=== PATIENT | female | born 1980 | race African-American/Black ===

== ENCOUNTER → 2018-08-22 | Outpatient (CLI) | payer OTHER ==
[2018-08-22 17:25] LABS: HEMOGLOBIN A1c 7.9 %
[2018-08-22 17:29] LABS: ALBUMIN 3.6 GM/DL (3.2-5.2); ALT/SGPT 31 U/L (12-78); BILIRUBIN,DIRECT < 0.1 MG/DL (0.0-0.2); BILIRUBIN,TOTAL 0.3 MG/DL (0.2-1.0); BLOOD UREA NITROGEN 11 MG/DL (7-18); CALCIUM LEVEL 9.1 MG/DL (8.5-10.1); CARBON DIOXIDE LEVEL 27 MEQ/L (21-32); CHLORIDE LEVEL 109 MEQ/L (98-107); CREATININE FOR GFR 0.98 MG/DL (0.55-1.30); GLOMERULAR FILTRATION RATE > 60.0 (>60); GLUCOSE, FASTING 102 MG/DL (70-100); PHOSPHORUS LEVEL 3.1 MG/DL (2.5-4.9); POTASSIUM SERUM 4.5 MEQ/L (3.5-5.1); SODIUM LEVEL 142 MEQ/L (136-145); TOTAL PROTEIN 7.3 GM/DL (6.4-8.2)
== END ==
LOC: M WUC 15:19
PROVIDERS: ATTEND Physician Assistant
DX: I10 Essential (primary) hypertension (principal)

== ENCOUNTER → 2018-09-01 | Outpatient (REF) | payer OTHER ==
[2018-09-01 17:42] LABS: FOLLICLE STIMULATING HORMONE 24.9 mIU/mL; LUTEINIZING HORMONE 24.7 mIU/mL
== END ==
LOC: M SFHCWAGY 15:56
PROVIDERS: ATTEND Nurse Practitioner Women's Health
DX: N91.5 Oligomenorrhea, unspecified (principal); R23.2 Flushing

== ENCOUNTER → 2018-09-29 | Outpatient (CLI) | payer OTHER ==
--- NOTE | 2018-09-29 10:15 | REPMRS ---
Patient History The patient states she had a clinical breast exam in 11/2017. Patient is nulliparous. Family history of breast cancer under age 50 in maternal aunt, breast cancer under age 50 and ovarian cancer under age 50 in maternal aunt, colorectal cancer at age 50 or over in maternal uncle. 3D TOMOSYNTHESIS WAS PERFORMED. Digital Woman Screen Mammo: September 29, 2018 - Exam #: [id number] Bilateral MLO, CC, and XCCL view(s) were taken. Technologist: Dayami Henry, Technologist No prior studies available for comparison. FINDINGS: The breast tissue is heterogeneously dense. This may lower the sensitivity of mammography. There is no evidence of cancer on this mammogram. Assessment: BI-RADS/ACR category 2 mammogram. Benign Findings. Recommendation Routine screening mammogram of both breasts in 1 year (for women over age 40). This mammogram was interpreted with the aid of an FDA-approved computer-aided dectection system. THE LIFETIME RISK OF BREAST CANCER IS 23.0%, THEREFORE SUPPLEMENTAL SCREENING MRI OF THE BREASTS IS RECOMMENDED IN 6 MONTHS. Electronically Signed By: Praveen Manrique MD 09/29/18 0037
== END ==
LOC: M WHC 08:28
PROVIDERS: ATTEND Nurse Practitioner Women's Health
DX: Z12.31 Encounter for screening mammogram for malignant neoplasm of breast (principal); Z80.3 Family history of malignant neoplasm of breast

== ENCOUNTER → 2018-11-25 | Outpatient (CLI) | payer OTHER ==
--- NOTE | 2018-11-25 12:36 | REP ---
Clinical: Trauma. Technique: AP, lateral views right tibia/fibula. Findings: The osseous structures and joint spaces are intact and normal. There is no evidence for acute fracture or dislocation. Surrounding soft tissues are unremarkable. No subcutaneous emphysema or radiodense foreign body. Impression: No acute fracture or dislocation. Electronically Signed by Iron Paige MD 11/25/2018 12:28 P
== END ==
LOC: M WUC 12:14
PROVIDERS: ATTEND Physician Assistant
DX: S80.11XA Contusion of right lower leg, initial encounter (principal); X58.XXXA Exposure to other specified factors, initial encounter; Y92.9 Unspecified place or not applicable

== ENCOUNTER → 2019-03-20 | Outpatient (REF) | payer OTHER | LOC: M LAB REF 16:34 | PROVIDERS: ATTEND Physician Assistant | DX: R30.0 Dysuria (principal) ==

== ENCOUNTER → 2019-03-22 | Outpatient (REF) | LOC: M LAB 11:48 | PROVIDERS: ATTEND Nurse Practitioner Adult Health | DX: Z00.00 Encounter for general adult medical examination without abnormal findings (principal) ==

== ENCOUNTER → 2019-03-30 | Outpatient (CLI) | payer OTHER ==
[2019-03-30 16:25] LABS: APPEARANCE, URINE HAZY (CLEAR); BACTERIA, URINE AUTO NEGATIVE (NEGATIVE); BILIRUBIN, URINE AUTO NEGATIVE (NEGATIVE); BLOOD, URINE BLOOD NEGATIVE (NEGATIVE); COLOR, URINE YELLOW (YELLOW); GLUCOSE, URINE (UA) AUTO 2+ mg/dL (NEGATIVE); KETONE, URINE AUTO TRACE mg/dL (NEGATIVE); LEUKOCYTE ESTERASE, URINE AUTO NEGATIVE (NEGATIVE); MUCUS, URINE SMALL (NEGATIVE); NITRITE, URINE AUTO NEGATIVE (NEGATIVE); PROTEIN, URINE AUTO 1+ mg/dL (NEGATIVE); RBC, URINE AUTO 1 /HPF (0-3); SPECIFIC GRAVITY URINE AUTO 1.036 (1.002-1.035); SQUAMOUS EPITHELIAL CELL UR AU 3 /HPF (0-6); URINE PREG TEST NEGATIVE (NEGATIVE); WBC, URINE AUTO 1 /HPF (0-3)
[2019-03-30 16:27] LABS: BASO % 0.5 % (0.0-1.0); EOS # 0.1 10^3/uL (0.0-0.5); EOS % 1.1 % (0.0-3.0); HEMATOCRIT 41.1 % (36.0-47.0); HEMOGLOBIN 13.3 g/dl (12.0-15.5); LYMPH # 3.6 10^3/uL (1.5-5.0); MEAN CORPUSCULAR HEMOGLOBIN 28.9 pg (27.0-33.0); MEAN CORPUSCULAR HGB CONC 32.4 g/dl (32.0-36.5); MEAN CORPUSCULAR VOLUME 89.2 fl (80.0-96.0); MONO # 0.3 10^3/uL (0.0-0.8); MONO % 4.3 % (0.0-5.0); NEUTROPHILS # 2.3 10^3/uL (1.5-8.5); NEUTROPHILS % 36.9 % (36.0-66.0); PLATELET COUNT, AUTOMATED 210 10^3/uL (150-450); RED BLOOD COUNT 4.61 10^6/uL (4.00-5.40); WHITE BLOOD COUNT 6.3 10^3/uL (4.0-10.0)
[2019-03-30 16:55] LABS: ALBUMIN 4.2 GM/DL (3.2-5.2); ALT/SGPT 29 U/L (12-78); BILIRUBIN,TOTAL 0.4 MG/DL (0.2-1.0); BLOOD UREA NITROGEN 22 MG/DL (7-18); CALCIUM LEVEL 9.3 MG/DL (8.5-10.1); CARBON DIOXIDE LEVEL 29 MEQ/L (21-32); CHLORIDE LEVEL 103 MEQ/L (98-107); CHOLESTEROL LEVEL 180 MG/DL (<200); CHOLESTEROL RISK RATIO 3.673 (<5); CREATININE FOR GFR 1.16 MG/DL (0.55-1.30); FREE T4 0.95 NG/DL (0.76-1.46); GLOMERULAR FILTRATION RATE > 60.0 (>58); GLUCOSE, FASTING 246 MG/DL (70-100); HDL CHOLESTEROL 49 MG/DL (>40); LDL CHOLESTEROL 111 MG/DL (<100); NON-HDL-C 131 MG/DL; POTASSIUM SERUM 3.8 MEQ/L (3.5-5.1); SODIUM LEVEL 140 MEQ/L (136-145); THYROID STIMULATING HORMONE 0.407 uIU/ML (0.358-3.740); TOTAL PROTEIN 7.7 GM/DL (6.4-8.2); TRIGLYCERIDES LEVEL 101 MG/DL (<150)
[2019-03-30 16:58] LABS: HEMOGLOBIN A1c 9.2 %
[2019-03-30 17:14] LABS: TOTAL 25(OH) VITAMIN D 18.9 NG/ML (30.0-100.0)
== END ==
LOC: M LAB 15:40
PROVIDERS: ATTEND Nurse Practitioner Family
DX: E78.5 Hyperlipidemia, unspecified (principal); I10 Essential (primary) hypertension; N92.5 Other specified irregular menstruation; Z13.9 Encounter for screening, unspecified

== ENCOUNTER → 2019-05-16 | Outpatient (CLI) | payer OTHER ==
[~2019-05-16] MED LIST: PROHANCE 279.3MG/ML 15ML VIAL (A9576) As Ordered ONE; PROHANCE 279.3MG/ML 5ML VIAL (A9576) As Ordered ONE
--- NOTE | 2019-05-16 19:44 | REP ---
Bilateral breast MRI study without and with IV gadolinium: History: Positive family history of breast carcinoma. High-risk breast cancer screening. Comparison mammography September 29, 2018. Technique: Three Thao MRI imaging was performed with a dedicated breast coil. Axial, coronal, and sagittal T1 and T2-weighted scans were obtained with and without fat saturation in the usual fashion. The study includes dynamically acquired post gadolinium enhanced imaging subtraction imaging. Maximal intensity projection and multiplanar re-formation imaging is included as well. The study was interpreted with the aid of [employer], an FDA approved computer-aided detection (CAD) software program, on a dedicated breast MRI work station. The gadolinium enhancement dose is the 20 ml of intravenous ProHance. Findings: There is no evidence of axillary lymphadenopathy or significant breast cystic change. There is a mild pattern of fibroglandular tissue bilaterally. There is minimal background parenchymal enhancement. High-resolution pre and postcontrast images show no suspicious morphologic abnormality in either breast. Sequentially obtained dynamic postcontrast images show no suspicious focus of enhancement and washout kinetics in either breast to suggest malignancy. Subtraction images show no additional abnormality. Impression: BIRADS category 1 negative findings. Repeat screening breast MRI scanning recommended 1 year. Annual screening mammography should continue as well. Electronically Signed by Esequiel Thomas MD 05/17/2019 08:56 A
== END ==
LOC: M RAD 14:41
PROVIDERS: ATTEND Nurse Practitioner Women's Health
DX: Z80.3 Family history of malignant neoplasm of breast (principal); Z12.31 Encounter for screening mammogram for malignant neoplasm of breast
CPT/HCPCS: A9576; C8908

== ENCOUNTER → 2019-09-25 | Outpatient (REF) | payer OTHER, MEDICAID ==
[2019-09-25 18:05] LABS: BASO % 0.4 % (0.0-1.0); EOS # 0.1 10^3/uL (0.0-0.5); EOS % 1.9 % (0.0-3.0); HEMATOCRIT 42.9 % (36.0-47.0); HEMOGLOBIN 13.9 g/dl (12.0-15.5); LYMPH # 2.5 10^3/uL (1.5-5.0); LYMPH % 45.8 % (24.0-44.0); MEAN CORPUSCULAR HEMOGLOBIN 28.4 pg (27.0-33.0); MEAN CORPUSCULAR HGB CONC 32.4 g/dl (32.0-36.5); MEAN CORPUSCULAR VOLUME 87.7 fl (80.0-96.0); MONO # 0.3 10^3/uL (0.0-0.8); MONO % 6.3 % (0.0-5.0); NEUTROPHILS # 2.5 10^3/uL (1.5-8.5); NEUTROPHILS % 45.4 % (36.0-66.0); PLATELET COUNT, AUTOMATED 237 10^3/uL (150-450); RED BLOOD COUNT 4.89 10^6/uL (4.00-5.40); WHITE BLOOD COUNT 5.4 10^3/uL (4.0-10.0)
[2019-09-25 18:07] LABS: ALBUMIN 3.8 GM/DL (3.2-5.2); ALT/SGPT 30 U/L (12-78); BILIRUBIN,TOTAL 0.4 MG/DL (0.2-1.0); BLOOD UREA NITROGEN 10 MG/DL (7-18); CALCIUM LEVEL 9.3 MG/DL (8.5-10.1); CARBON DIOXIDE LEVEL 26 MEQ/L (21-32); CHLORIDE LEVEL 106 MEQ/L (98-107); CHOLESTEROL LEVEL 173 MG/DL (<200); CHOLESTEROL RISK RATIO 3.604 (<5); CREATININE FOR GFR 1.04 MG/DL (0.55-1.30); GLOMERULAR FILTRATION RATE > 60.0 (>58); GLUCOSE, FASTING 211 MG/DL (70-100); HDL CHOLESTEROL 48 MG/DL (>40); LDL CHOLESTEROL 112 MG/DL (<100); NON-HDL-C 125 MG/DL; POTASSIUM SERUM 3.1 MEQ/L (3.5-5.1); SODIUM LEVEL 137 MEQ/L (136-145); THYROID STIMULATING HORMONE 0.726 uIU/ML (0.358-3.740); TOTAL PROTEIN 7.6 GM/DL (6.4-8.2); TRIGLYCERIDES LEVEL 66 MG/DL (<150)
[2019-09-25 18:08] LABS: TOTAL 25(OH) VITAMIN D 15.6 NG/ML (30.0-100.0)
[2019-09-25 18:24] LABS: HEMOGLOBIN A1c 9.9 %
== END ==
LOC: M LAB REF 16:25
PROVIDERS: ATTEND Nurse Practitioner Family
DX: Z13.9 Encounter for screening, unspecified (principal); N92.6 Irregular menstruation, unspecified; E78.5 Hyperlipidemia, unspecified; E11.9 Type 2 diabetes mellitus without complications; I10 Essential (primary) hypertension

== ENCOUNTER → 2020-01-01 | Outpatient (CLI) | payer OTHER, MEDICAID ==
[2020-01-01 15:40] LABS: BASO % 0.5 % (0.0-1.0); EOS # 0.1 10^3/uL (0.0-0.5); EOS % 1.3 % (0.0-3.0); HEMOGLOBIN 14.3 g/dl (12.0-15.5); LYMPH # 2.7 10^3/uL (1.5-5.0); LYMPH % 49.4 % (24.0-44.0); MEAN CORPUSCULAR HEMOGLOBIN 29.2 pg (27.0-33.0); MEAN CORPUSCULAR HGB CONC 31.8 g/dl (32.0-36.5); MONO # 0.3 10^3/uL (0.0-0.8); MONO % 5.6 % (0.0-5.0); NEUTROPHILS # 2.4 10^3/uL (1.5-8.5); PLATELET COUNT, AUTOMATED 246 10^3/uL (150-450); RED BLOOD COUNT 4.89 10^6/uL (4.00-5.40); WHITE BLOOD COUNT 5.5 10^3/uL (4.0-10.0)
[2020-01-01 16:03] LABS: HEMOGLOBIN A1c 7.4 %
[2020-01-01 16:10] LABS: ALBUMIN 3.9 GM/DL (3.2-5.2); ALT/SGPT 26 U/L (12-78); BILIRUBIN,TOTAL 0.3 MG/DL (0.2-1.0); BLOOD UREA NITROGEN 16 MG/DL (7-18); CALCIUM LEVEL 10.1 MG/DL (8.5-10.1); CARBON DIOXIDE LEVEL 31 MEQ/L (21-32); CHLORIDE LEVEL 103 MEQ/L (98-107); CREATININE FOR GFR 1.13 MG/DL (0.55-1.30); GLOMERULAR FILTRATION RATE > 60.0 (>58); GLUCOSE, FASTING 103 MG/DL (70-100); MAGNESIUM LEVEL 2.2 MG/DL (1.8-2.4); PHOSPHORUS LEVEL 3.9 MG/DL (2.5-4.9); POTASSIUM SERUM 3.5 MEQ/L (3.5-5.1); SODIUM LEVEL 139 MEQ/L (136-145); TOTAL PROTEIN 7.8 GM/DL (6.4-8.2)
[2020-01-01 16:15] LABS: MALB URINE SIEMENS 20.4 MG/L; MAU/CREAT RATIO 19.2 MCG/MG (0.0-30.0)
== END ==
LOC: M WUC 13:09
PROVIDERS: ATTEND Nurse Practitioner Family
DX: E11.649 Type 2 diabetes mellitus with hypoglycemia without coma (principal); R81 Glycosuria

== ENCOUNTER → 2020-01-03 | Outpatient (REF) | payer OTHER, MEDICAID ==
[2020-01-03 17:54] LABS: APPEARANCE, URINE HAZY (CLEAR); BACTERIA, URINE AUTO NEGATIVE (NEGATIVE); BILIRUBIN, URINE AUTO NEGATIVE (NEGATIVE); BLOOD, URINE BLOOD 1+ (NEGATIVE); COLOR, URINE YELLOW (YELLOW); GLUCOSE, URINE (UA) AUTO 3+ mg/dL (NEGATIVE); KETONE, URINE AUTO NEGATIVE (NEGATIVE); LEUKOCYTE ESTERASE, URINE AUTO NEGATIVE (NEGATIVE); MUCUS, URINE SMALL (NEGATIVE); NITRITE, URINE AUTO NEGATIVE (NEGATIVE); PROTEIN, URINE AUTO 1+ mg/dL (NEGATIVE); RBC, URINE AUTO 1 /HPF (0-3); SPECIFIC GRAVITY URINE AUTO 1.031 (1.002-1.035); SQUAMOUS EPITHELIAL CELL UR AU 5 /HPF (0-6); WBC, URINE AUTO 0 /HPF (0-3)
[2020-01-03 18:09] LABS: CHOLESTEROL RISK RATIO 4.24 (<5); FREE T4 0.94 NG/DL (0.76-1.46); THYROID STIMULATING HORMONE 0.61 uIU/ML (0.358-3.740)
== END ==
LOC: M LAB REF 16:20
PROVIDERS: ATTEND Nurse Practitioner Family
DX: E66.9 Obesity, unspecified (principal); Z13.9 Encounter for screening, unspecified; E11.9 Type 2 diabetes mellitus without complications; R53.83 Other fatigue

== ENCOUNTER → 2020-03-27 | Outpatient (REF) | payer OTHER | LOC: M WUC 16:11 | PROVIDERS: ATTEND Nurse Practitioner Family | DX: R30.0 Dysuria (principal) ==

== ENCOUNTER → 2020-05-13 | Outpatient (REF) | LOC: M LABSMTC 11:28 | PROVIDERS: ATTEND Pediatrics | DX: Z11.52 Encounter for screening for COVID-19 (principal) ==

== ENCOUNTER → 2020-05-15 | Outpatient (CLI) | payer OTHER ==
--- NOTE | 2020-05-15 12:46 | REPMRS ---
Patient History The patient states she had a clinical breast exam in 04/2020 Family history of breast cancer under age 50 in maternal aunt, breast cancer under age 50 and ovarian cancer under age 50 in maternal aunt, colorectal cancer at age 50 or over in maternal uncle. Digital Woman Screen Mammo: May 15, 2020 - Exam #: [id number] Bilateral MLO, CC, and XCCL view(s) were taken. Technologist: Dayami Henry, Technologist Prior study comparison: September 29, 2018, bilateral digital woman screen mammo performed at [facility]. FINDINGS: The breast tissue is almost entirely fat. The Volpara volumetric breast density category is: A. There has been no change in the appearance of the mammogram from the prior studies. There is no interval development of dominant mass, architectural distortion, or grouped microcalcification typical of malignancy. 3-D tomosynthesis shows no additional findings. Assessment: BI-RADS/ACR category 1 mammogram. Negative Mammogram. Recommendation Breast MRI of both breasts in 6 months. Routine screening mammogram of both breasts in 1 year (for women over age 40). This patient's [facility] Lifetime Breast Cancer RIsk is estimated at 22.3 %. This mammogram was interpreted with the aid of an FDA-approved computer-aided dectection system. Electronically Signed By: Steven Thomas MD 05/15/20 [id number]
== END ==
LOC: M WHC 10:13
PROVIDERS: ATTEND Nurse Practitioner Women's Health
DX: R92.2 Inconclusive mammogram (principal); Z91.89 Other specified personal risk factors, not elsewhere classified; Z80.3 Family history of malignant neoplasm of breast

== ENCOUNTER → 2020-05-15 | Outpatient (REF) | payer OTHER | LOC: M SFHCWAGY 13:15 | PROVIDERS: ATTEND Nurse Practitioner Women's Health | DX: Z12.4 Encounter for screening for malignant neoplasm of cervix (principal); N76.0 Acute vaginitis ==

== ENCOUNTER → 2020-05-18 | Outpatient (REF) | payer OTHER | LOC: M LAB REF 19:06 | PROVIDERS: ATTEND Physician Assistant | DX: A60.04 Herpesviral vulvovaginitis (principal) ==

== ENCOUNTER → 2020-05-21 | Outpatient (REF) | payer OTHER ==
[2020-05-23 19:18] LABS: CHLAMYDIA DNA AMPLIFICATION NEGATIVE (NEGATIVE); GC DNA AMPLIFICATION NEGATIVE (NEGATIVE)
== END ==
LOC: M SFHCWAGY 17:18
PROVIDERS: ATTEND Nurse Practitioner Women's Health
DX: Z11.3 Encounter for screening for infections with a predominantly sexual mode of transmission (principal)

== ENCOUNTER → 2020-06-01 | Outpatient (CLI) | payer OTHER | LOC: M LAB 15:38 | PROVIDERS: ATTEND Physician Assistant | DX: Z32.00 Encounter for pregnancy test, result unknown (principal) ==

== ENCOUNTER 2020-09-20 11:23 | Emergency (ER) | payer OTHER ==
[~2020-09-20] VITALS: Ht 152.4 cm; Wt 109.3 kg
[2020-09-20 11:24] VITALS: BP 168/98
[2020-09-20] MEDS ORDERED: METO1TAB87 (11:34)
[2020-09-20] MEDS ORDERED: HYDR-3490 (11:34)
[2020-09-20] MEDS ORDERED: LISI40TA4 (11:34)
[2020-09-20] MEDS ORDERED: TRUL10IN (11:34)
[2020-09-20] MEDS ORDERED: STEG5TAB (11:34)
[2020-09-20] MEDS ORDERED: ATOR1TAB21 (11:34)
[2020-09-20] MEDS ORDERED: LIDOCAINE 5% (LIDODERM) PATCH TD ONE (12:25)
[2020-09-20] MEDS ORDERED: LIDO5DIS41 TOP (12:26)
[2020-09-20] MEDS ORDERED: **NOTE PATIENT COMMENT** MISC XX SCH (21:00)
== END 2020-09-20 12:41 | disposition home or self-care (01) ==
LOC: M ED 11:23
DX: M70.61 Trochanteric bursitis, right hip (principal); S76.011A Strain of muscle, fascia and tendon of right hip, initial encounter; X50.0XXA Overexertion from strenuous movement or load, initial encounter; Y92.9 Unspecified place or not applicable; Y93.89 Activity, other specified; Y99.9 Unspecified external cause status; E11.9 Type 2 diabetes mellitus without complications; I10 Essential (primary) hypertension; E78.5 Hyperlipidemia, unspecified; Z88.0 Allergy status to penicillin; Z88.8 Allergy status to other drugs, medicaments and biological substances

== ENCOUNTER → 2020-10-16 | Outpatient (CLI) | payer OTHER ==
[~2020-10-16] MED LIST changes: +ATOR1TAB21; +HYDR-3490; +LIDO5DIS41 TOP; +LISI40TA4; +METO1TAB87; -PROHANCE 279.3MG/ML 15ML VIAL (A9576) As Ordered ONE; -PROHANCE 279.3MG/ML 5ML VIAL (A9576) As Ordered ONE; +STEG5TAB; +TRUL10IN
--- NOTE | 2020-10-16 14:43 | REP ---
INDICATION: PAIN RIGHT HIP. COMPARISON: None. TECHNIQUE: AP and frogleg views FINDINGS: The hip joint space is preserved. There is a tiny spur on the femoral head seen better on frogleg view at the femoral head neck junction. There is no evidence of sclerosis of the acetabular roof and no erosions lucencies or other sign of AVN, fracture or focal lesion in the bony hips. Bony acetabulum, visible portion of iliac bone, inferior SI joint and pubic rami are unremarkable. IMPRESSION: 1. Minimal degenerative changes of the hip with tiny spurs. No hip joint space narrowing, AVN, fracture or focal lesion. <Electronically signed by Justice Borrego > 10/16/20 1229
== END ==
LOC: M WUC 14:08
PROVIDERS: ATTEND Physician Assistant
DX: M25.551 Pain in right hip (principal)

== ENCOUNTER → 2020-10-29 | Outpatient (REF) | LOC: M LABSMTC 10:41 | PROVIDERS: ATTEND Pediatrics | DX: Z11.52 Encounter for screening for COVID-19 (principal) ==

== ENCOUNTER → 2021-01-26 | Outpatient (REF) | LOC: M EMP 09:13 | PROVIDERS: ATTEND Family Medicine | DX: Z11.52 Encounter for screening for COVID-19 (principal) ==

== ENCOUNTER → 2021-03-19 | Outpatient (REF) ==
[~2021-03-19] MED LIST changes: +IMIQ5CR; +LIDO2GEL26; +VALA1TAB5
[2021-03-19 13:04] LABS: RSV AMPLIFICATION NEGATIVE (NEGATIVE)
== END ==
LOC: M EMP 11:18
PROVIDERS: ATTEND Family Medicine
DX: Z11.52 Encounter for screening for COVID-19 (principal)

== ENCOUNTER 2021-03-20 09:45 | Outpatient (CLI) | payer OTHER ==
[2021-03-20] VITALS (7 sets, daily range): BP systolic 152–175; BP diastolic 72–96
[~2021-03-20] VITALS: Ht 152.4 cm; Wt 109.3 kg
[~2021-03-20 09:45] MED LIST changes: +ALBUTEROL 90 MCG/ACT 8GM HFA INHALER INH PRN; +ALBUTEROL SULFATE 2.5 MG/0.5 ML INH NEB SOLN INH PRN; +EPINEPHrine INJ 1 MG/ML 1ML AMP IM PRN; +NS 1,000 ML IV SCH; +diphenhydrAMINE 50MG/ML VIAL (J1200) IV PRN; +methylPREDNISolone 125MG 2ML VIAL IV PRN
[2021-03-20] MEDS ORDERED: BAMLANIVIMAB 700 MG, ETESEVIMAB 1,400 MG in NS 250 ML IV ONE (10:00)
== END 2021-03-20 12:14 | disposition home or self-care (01) ==
LOC: M OPCLI4PR 09:45
PROVIDERS: ATTEND Nurse Practitioner Family
DX: U07.1 COVID-19 (principal); Z88.0 Allergy status to penicillin; Z88.8 Allergy status to other drugs, medicaments and biological substances

== ENCOUNTER 2021-08-13 13:26 | Emergency (ER) | payer OTHER ==
[~2021-08-13] VITALS: Ht 152.4 cm; Wt 108.6 kg
[~2021-08-13 13:26] MED LIST changes: -ALBUTEROL 90 MCG/ACT 8GM HFA INHALER INH PRN; -ALBUTEROL SULFATE 2.5 MG/0.5 ML INH NEB SOLN INH PRN; -EPINEPHrine INJ 1 MG/ML 1ML AMP IM PRN; -IMIQ5CR; +IMIQ5CRE8; -NS 1,000 ML IV SCH; -diphenhydrAMINE 50MG/ML VIAL (J1200) IV PRN; -methylPREDNISolone 125MG 2ML VIAL IV PRN
[2021-08-13] MEDS ORDERED: hydroCHLOROthiazide 12.5 MG CAPSULE PO ONE (15:50)
[2021-08-13] MEDS ORDERED: METOPROLOL TART 25 MG TABLET PO ONE (15:50)
[2021-08-13] MEDS ORDERED: traMADol 50 MG TAB PO ONE (16:50)
[2021-08-13] MEDS ORDERED: BACITRACIN OINTMENT 30GM TUBE TOP STA (16:50)
[2021-08-13] MEDS ORDERED: TRAM50TA2 PO (17:21)
[2021-08-13] MEDS ORDERED: BACI500O8 TOP (17:21)
[2021-08-13] MEDS ORDERED: BOOSTRIX/ADACEL VACCINE (DIPHTH/PERTUSS/ACELL/TETANUS) 0.5ML SYR IM ONE (17:30)
[2021-08-13 17:43] VITALS: BP 155/98
== END 2021-08-13 17:47 | disposition home or self-care (01) ==
LOC: M ED 13:26
DX: T21.41XA Corrosion of unspecified degree of chest wall, initial encounter (principal); T22.412A Corrosion of unspecified degree of left forearm, initial encounter; T31.0 Burns involving less than 10% of body surface; X19.XXXA Contact with other heat and hot substances, initial encounter; Y92.9 Unspecified place or not applicable; Y93.9 Activity, unspecified; Y99.9 Unspecified external cause status; E11.9 Type 2 diabetes mellitus without complications; I10 Essential (primary) hypertension; Z88.0 Allergy status to penicillin; Z88.8 Allergy status to other drugs, medicaments and biological substances; Z79.899 Other long term (current) drug therapy; F17.200 Nicotine dependence, unspecified, uncomplicated

== ENCOUNTER → 2021-10-09 | Outpatient (REF) ==
[~2021-10-09] MED LIST changes: +BACI500O8 TOP; +TRAM50TA2 PO
== END ==
LOC: M EMP 09:21
PROVIDERS: ATTEND Family Medicine
DX: Z20.822 Contact with and (suspected) exposure to COVID-19 (principal)

== ENCOUNTER → 2021-10-13 | Outpatient (REF) ==
[2021-10-13 13:07] LABS: RSV AMPLIFICATION NEGATIVE (NEGATIVE)
== END ==
LOC: M LABSMTC 09:46
PROVIDERS: ATTEND Family Medicine
DX: Z20.822 Contact with and (suspected) exposure to COVID-19 (principal)

== ENCOUNTER → 2021-12-11 | Outpatient (REF) ==
[2021-12-11 12:59] LABS: RSV AMPLIFICATION NEGATIVE (NEGATIVE)
== END ==
LOC: M EMP 10:32
PROVIDERS: ATTEND Family Medicine
DX: Z11.52 Encounter for screening for COVID-19 (principal)

== ENCOUNTER → 2022-01-31 | Outpatient (REF) ==
[2022-01-31 13:14] LABS: RSV AMPLIFICATION NEGATIVE (NEGATIVE)
== END ==
LOC: M LABSMTC 10:25
PROVIDERS: ATTEND Family Medicine
DX: Z11.52 Encounter for screening for COVID-19 (principal)

== ENCOUNTER → 2022-04-26 | Outpatient (REF) ==
[2022-04-26 13:56] LABS: RSV AMPLIFICATION NEGATIVE (NEGATIVE)
== END ==
LOC: M LABSMTC 10:30
PROVIDERS: ATTEND Family Medicine
DX: Z11.59 Encounter for screening for other viral diseases (principal)

== ENCOUNTER → 2022-05-17 | Outpatient (REF) | payer OTHER ==
[2022-05-17 18:14] LABS: HEMOGLOBIN A1c 10.3 % (4.0-6.0)
== END ==
LOC: M LAB REF 16:58
PROVIDERS: ATTEND Nurse Practitioner Family
DX: E11.65 Type 2 diabetes mellitus with hyperglycemia (principal)

== ENCOUNTER → 2022-05-24 | Outpatient (REF) | payer OTHER | LOC: M LAB REF 12:27 | PROVIDERS: ATTEND Nurse Practitioner Family | DX: R39.9 Unspecified symptoms and signs involving the genitourinary system (principal) ==

== ENCOUNTER → 2022-07-23 | Outpatient (CLI) | payer OTHER | LOC: M WUC 11:26 | PROVIDERS: ATTEND Nurse Practitioner Family | DX: M25.532 Pain in left wrist (principal) ==

== ENCOUNTER → 2022-08-31 | Outpatient (CLI) | payer OTHER | LOC: M WHC 10:40 | PROVIDERS: ATTEND Nurse Practitioner Family | DX: Z12.31 Encounter for screening mammogram for malignant neoplasm of breast (principal) ==

== ENCOUNTER → 2022-08-31 | Outpatient (CLI) | payer OTHER ==
[2022-08-31 15:56] LABS: BASO % 0.6 % (0.0-1.0); EOS # 0.1 10^3/uL (0.0-0.5); EOS % 1.1 % (0.0-3.0); HEMATOCRIT 45.4 % (36.0-47.0); HEMOGLOBIN 14.4 g/dl (12.0-15.5); LYMPH # 2.6 10^3/uL (1.5-5.0); LYMPH % 48.7 % (24.0-44.0); MEAN CORPUSCULAR HEMOGLOBIN 28.9 pg (27.0-33.0); MEAN CORPUSCULAR HGB CONC 31.7 g/dl (32.0-36.5); MONO # 0.3 10^3/uL (0.0-0.8); MONO % 5.3 % (2.0-8.0); NEUTROPHILS # 2.3 10^3/uL (1.5-8.5); NEUTROPHILS % 44.1 % (36.0-66.0); PLATELET COUNT, AUTOMATED 218 10^3/uL (150-450); RED BLOOD COUNT 4.99 10^6/uL (4.00-5.40); WHITE BLOOD COUNT 5.3 10^3/uL (4.0-10.0)
[2022-08-31 16:16] LABS: ALBUMIN 3.8 G/DL (3.2-5.2); ALKALINE PHOSPHATASE 93 U/L (46-116); ALT/SGPT 25 U/L (7.0-40); AST/SGOT 11 U/L (<34); BILIRUBIN,TOTAL 0.4 MG/DL (0.3-1.2); BLOOD UREA NITROGEN 14 MG/DL (9-23); CALCIUM LEVEL 9.1 MG/DL (8.5-10.1); CARBON DIOXIDE LEVEL 30 MMOL/L (20-31); CHLORIDE LEVEL 105 MMOL/L (98-107); GLOMERULAR FILTRATION RATE > 60.0 (>58); GLUCOSE, FASTING 171 MG/DL (60-100); POTASSIUM SERUM 3.5 MMOL/L (3.5-5.1); SODIUM LEVEL 141 MMOL/L (136-145); TOTAL PROTEIN 6.9 G/DL (5.7-8.2)
[2022-08-31 16:20] LABS: FOLLICLE STIMULATING HORMONE 69.6 mIU/ML; LUTEINIZING HORMONE 42.5 mIU/ML; PROLACTIN 5.71 NG/ML
[2022-08-31 16:21] LABS: ESTRADIOL 22.5 PG/ML; THYROID STIMULATING HORMONE 1.055 uIU/ML (0.55-4.78)
[2022-08-31 17:00] LABS: HEMOGLOBIN A1c 10.2 % (4.0-6.0)
== END ==
LOC: M PLALAB 12:17
PROVIDERS: ATTEND Nurse Practitioner Family
DX: Z01.419 Encounter for gynecological examination (general) (routine) without abnormal findings (principal); N91.2 Amenorrhea, unspecified; Z12.4 Encounter for screening for malignant neoplasm of cervix; Z77.9 Other contact with and (suspected) exposures hazardous to health

== ENCOUNTER 2023-03-07 01:14 | Emergency (ER) | payer OTHER ==
[~2023-03-07] VITALS: Ht 152.4 cm; Wt 106.5 kg
[2023-03-07] MEDS ORDERED: KETOROLAC 30 MG/ML 1ML VIAL IV ONE (06:15)
[2023-03-07 06:50] LABS: BASO % 0.6 % (0.0-1.0); EOS # 0.1 10^3/uL (0.0-0.5); EOS % 0.9 % (0.0-3.0); HEMATOCRIT 46.2 % (36.0-47.0); HEMOGLOBIN 15.7 g/dl (12.0-15.5); LYMPH # 3.2 10^3/uL (1.5-5.0); LYMPH % 46.5 % (24.0-44.0); MEAN CORPUSCULAR HEMOGLOBIN 29.8 pg (27.0-33.0); MEAN CORPUSCULAR VOLUME 87.7 fl (80.0-96.0); MONO # 0.4 10^3/uL (0.0-0.8); MONO % 5.6 % (2.0-8.0); NEUTROPHILS # 3.2 10^3/uL (1.5-8.5); NEUTROPHILS % 46.1 % (36.0-66.0); PLATELET COUNT, AUTOMATED 234 10^3/uL (150-450); RED BLOOD COUNT 5.27 10^6/uL (4.00-5.40); WHITE BLOOD COUNT 6.9 10^3/uL (4.0-10.0)
[2023-03-07 07:18] LABS: ALBUMIN 4.2 G/DL (3.2-5.2); BILIRUBIN,DIRECT 0.2 MG/DL (<0.4); BILIRUBIN,TOTAL 0.7 MG/DL (0.3-1.2); TOTAL PROTEIN 7.4 G/DL (5.7-8.2)
[2023-03-07] MEDS ORDERED: ISOVUE-370 76% 100ML VIAL As Ordered ONE (07:43)
[2023-03-07] MEDS ORDERED: COLA100C5 PO (10:46)
[2023-03-07] MEDS ORDERED: RA M1SOL2 PO (10:46)
[2023-03-07 10:59] VITALS: BP 115/64; TEMP 97.4; O2SAT 99
== END 2023-03-07 11:14 | disposition home or self-care (01) ==
LOC: M ED 01:14
DX: K59.00 Constipation, unspecified (principal); E11.9 Type 2 diabetes mellitus without complications; I10 Essential (primary) hypertension; Z86.73 Personal history of transient ischemic attack (TIA), and cerebral infarction without residual deficits; K76.0 Fatty (change of) liver, not elsewhere classified; K80.20 Calculus of gallbladder without cholecystitis without obstruction; Z79.899 Other long term (current) drug therapy; Z79.4 Long term (current) use of insulin; Z88.0 Allergy status to penicillin; Z88.8 Allergy status to other drugs, medicaments and biological substances
CPT/HCPCS: 74018; 74177; 80047; 80076; 81001; 83605; 83690; 85025; 93041; 96374; 99284; J1885; Q9967

== ENCOUNTER → 2023-07-11 | Outpatient (REF) | payer OTHER ==
[~2023-07-11] MED LIST changes: +COLA100C5 PO; +RA M1SOL2 PO
[2023-07-11 15:18] LABS: HEMOGLOBIN A1c 11.6 % (4.0-6.0)
== END ==
LOC: M LAB REF 13:00
PROVIDERS: ATTEND Nurse Practitioner Family
DX: E11.65 Type 2 diabetes mellitus with hyperglycemia (principal)

== ENCOUNTER → 2023-08-16 | Outpatient (REF) | payer OTHER | LOC: M LAB REF 16:24 | PROVIDERS: ATTEND Nurse Practitioner Family | DX: J06.9 Acute upper respiratory infection, unspecified (principal); Z20.828 Contact with and (suspected) exposure to other viral communicable diseases ==

== ENCOUNTER 2023-08-20 09:45 | Emergency (ER) | payer OTHER ==
[~2023-08-20] VITALS: Ht 152.4 cm; Wt 103.9 kg
[2023-08-20 10:16] LABS: BASO % 0.5 % (0.0-1.0); EOS # 0.1 10^3/uL (0.0-0.5); EOS % 0.9 % (0.0-3.0); HEMATOCRIT 40.8 % (36.0-47.0); HEMOGLOBIN 14.1 g/dl (12.0-15.5); LYMPH # 2.3 10^3/uL (1.5-5.0); LYMPH % 41.6 % (24.0-44.0); MEAN CORPUSCULAR HEMOGLOBIN 30.1 pg (27.0-33.0); MEAN CORPUSCULAR HGB CONC 34.6 g/dl (32.0-36.5); MEAN CORPUSCULAR VOLUME 87.2 fl (80.0-96.0); MONO # 0.4 10^3/uL (0.0-0.8); MONO % 7.2 % (2.0-8.0); NEUTROPHILS # 2.7 10^3/uL (1.5-8.5); NEUTROPHILS % 49.4 % (36.0-66.0); PLATELET COUNT, AUTOMATED 213 10^3/uL (150-450); RED BLOOD COUNT 4.68 10^6/uL (4.00-5.40); WHITE BLOOD COUNT 5.5 10^3/uL (4.0-10.0)
[2023-08-20 10:42] LABS: LIPASE 70 U/L (12-53)
[2023-08-20 10:43] LABS: AMYLASE 69 U/L (30-118)
[2023-08-20 10:58] LABS: ALBUMIN 3.9 G/DL (3.2-5.2); ALKALINE PHOSPHATASE 113 U/L (46-116); ALT/SGPT 32 U/L (7.0-40); AST/SGOT 15 U/L (<34); BILIRUBIN,DIRECT 0.2 MG/DL (<0.4); BILIRUBIN,TOTAL 0.5 MG/DL (0.3-1.2); BLOOD UREA NITROGEN 20 MG/DL (9-23); CALCIUM LEVEL 9.5 MG/DL (8.5-10.1); CARBON DIOXIDE LEVEL 28 MMOL/L (20-31); CHLORIDE LEVEL 91 MMOL/L (98-107); CREATININE FOR GFR 1.05 MG/DL (0.55-1.30); GLOMERULAR FILTRATION RATE > 60.0 (>58); GLUCOSE, FASTING 676 MG/DL (60-100); POTASSIUM SERUM 3.5 MMOL/L (3.5-5.1); SODIUM LEVEL 130 MMOL/L (136-145)
[2023-08-20 11:19] LABS: HCG, SERUM QUALITATIVE NEGATIVE (NEGATIVE)
[2023-08-20] MEDS: HALOPERIDOL LACTATE 5MG/ML VIAL IV ONE (11:25)
[2023-08-20] MEDS: NS 1,000 ML IV ONE ×2 (11:25)
[2023-08-20 11:48] LABS: HEMOGLOBIN A1c 12.7 % (4.0-6.0)
[2023-08-20 12:09] LABS: AMPHETAMINES LEVEL URINE NEGATIVE (NEGATIVE); BARBITURATES URINE NEGATIVE (NEGATIVE); BENZODIAZEPINES URINE NEGATIVE (NEGATIVE); CANNABINOIDS URINE POSITIVE (NEGATIVE); COCAINE METABOLITE URINE NEGATIVE (NEGATIVE); METHADONE URINE NEGATIVE (NEGATIVE); OPIATES URINE NEGATIVE (NEGATIVE); PHENCYCLIDINE URINE NEGATIVE (NEGATIVE)
[2023-08-20] MEDS ORDERED: ISOVUE-370 76% 100ML VIAL As Ordered ONE (13:34)
[2023-08-20 15:12] VITALS: BP 158/91; TEMP 98.2; O2SAT 98
== END 2023-08-20 15:14 | disposition left against medical advice (07) ==
LOC: M ED 09:45
DX: R11.10 Vomiting, unspecified (principal); E11.9 Type 2 diabetes mellitus without complications; I45.81 Long QT syndrome; I10 Essential (primary) hypertension; K76.0 Fatty (change of) liver, not elsewhere classified; F12.10 Cannabis abuse, uncomplicated; F10.10 Alcohol abuse, uncomplicated; Z88.0 Allergy status to penicillin; Z88.8 Allergy status to other drugs, medicaments and biological substances; Z86.79 Personal history of other diseases of the circulatory system; Z79.84 Long term (current) use of oral hypoglycemic drugs; Z79.811 Long term (current) use of aromatase inhibitors; Z79.02 Long term (current) use of antithrombotics/antiplatelets; Z53.9 Procedure and treatment not carried out, unspecified reason
CPT/HCPCS: 74177; 80048; 80076; 80307; 82150; 83036; 83690; 84703; 85025; 93005; 96361; 96374; 99284; J1630; Q9967

== ENCOUNTER → 2023-10-06 | Outpatient (CLI) | payer OTHER | LOC: M WHC 11:26 | PROVIDERS: ATTEND Nurse Practitioner Family | DX: Z53.9 Procedure and treatment not carried out, unspecified reason (principal) ==

== ENCOUNTER 2023-10-14 19:01 | Inpatient (IN) | payer OTHER ==
[~2023-10-14] VITALS: Ht 152.4 cm; Wt 104.2 kg
[~2023-10-14 19:01] MED LIST changes: +ATOR1TAB21 PO; +HYDR-3490 PO; +LISI40TA4 PO; +METO1TAB87 PO; +STEG5TAB PO
[2023-10-14 20:38] LABS: BASO % 0.2 % (0.0-1.0); EOS % 0.2 % (0.0-3.0); HEMOGLOBIN 14.3 g/dl (12.0-15.5); LYMPH # 1.6 10^3/uL (1.5-5.0); LYMPH % 14.6 % (24.0-44.0); MEAN CORPUSCULAR HEMOGLOBIN 28.9 pg (27.0-33.0); MEAN CORPUSCULAR HGB CONC 33.3 g/dl (32.0-36.5); MONO # 0.6 10^3/uL (0.0-0.8); MONO % 5.2 % (2.0-8.0); NEUTROPHILS # 8.9 10^3/uL (1.5-8.5); NEUTROPHILS % 79.3 % (36.0-66.0); PLATELET COUNT, AUTOMATED 276 10^3/uL (150-450); RED BLOOD COUNT 4.94 10^6/uL (4.00-5.40); WHITE BLOOD COUNT 11.2 10^3/uL (4.0-10.0)
[2023-10-14] MEDS ORDERED: VANCOMYCIN HCL 1,500 MG in IV FLUID PLACE HOLDER 1 EA IV ONE (20:40)
[2023-10-14] MEDS: ONDANSETRON 4MG 2ML VIAL IV ONE (20:54)
[2023-10-14] MEDS: ACETAMINOPHEN TAB 650MG DOSE (2X325MG) PO ONE (20:54)
[2023-10-14] MEDS: VANCOMYCIN HCL 750 MG, VIAL MATE ADAPTER 1 EACH in D5W 250 ML IV ONE ×2 (20:54→22:40)
[2023-10-14] MEDS: MORPHINE 4 MG/ML 1ML VIAL IV ONE (20:54)
[2023-10-14] MEDS: NS 1,000 ML IV ONE (20:55)
[2023-10-14 21:04] LABS: ALBUMIN 3.5 G/DL (3.2-5.2); ALKALINE PHOSPHATASE 110 U/L (46-116); ALT/SGPT 15 U/L (7.0-40); AST/SGOT < 8 U/L (<34); BILIRUBIN,TOTAL 0.5 MG/DL (0.3-1.2); BLOOD UREA NITROGEN 15 MG/DL (9-23); CALCIUM LEVEL 9.8 MG/DL (8.5-10.1); CARBON DIOXIDE LEVEL 26 MMOL/L (20-31); CHLORIDE LEVEL 98 MMOL/L (98-107); CREATININE FOR GFR 0.94 MG/DL (0.55-1.30); GLOMERULAR FILTRATION RATE > 60.0 (>58); GLUCOSE, FASTING 285 MG/DL (60-100); POTASSIUM SERUM 3.1 MMOL/L (3.5-5.1); SODIUM LEVEL 136 MMOL/L (136-145); TOTAL PROTEIN 7.9 G/DL (5.7-8.2)
[2023-10-15] VITALS (8 sets, daily range): BP systolic 124–158; BP diastolic 67–96; TEMP 97–99; O2SAT 95–100
[2023-10-15] MEDS: MORPHINE 4 MG/ML 1ML VIAL IV ONE (00:10)
[2023-10-15] MEDS ORDERED: CLIN-250 PO (00:21)
[2023-10-15] MEDS ORDERED: DULA3PEN INJ (00:21)
[2023-10-15] MEDS ORDERED: INSU100I48 INJ (00:21)
[2023-10-15] MEDS ORDERED: VALA500T5 PO (00:23)
[2023-10-15] MEDS ORDERED: HOME MED LIST COMPLETE! XX SCH (00:25)
[2023-10-15] MEDS ORDERED: DEXTROSE 50% 50ML SYRINGE IV PRN (00:50)
[2023-10-15] MEDS ORDERED: GLUCAGON INJ 1MG VIAL SC PRN (00:50)
[2023-10-15] MEDS ORDERED: VANCOMYCIN HCL 750 MG, VIAL MATE ADAPTER 1 EACH in D5W 250 ML IV SCH (00:50)
[2023-10-15] MEDS ORDERED: GLUCOSE 4 GM CHEW PO PRN (00:50)
[2023-10-15] MEDS: ACETAMINOPHEN TAB 650MG DOSE (2X325MG) PO PRN ×2 (02:55→20:11)
[2023-10-15] MEDS: MORPHINE 4 MG/ML 1ML VIAL IV PRN (03:50)
[2023-10-15] MEDS: POTASSIUM CHLORIDE 10MEQ SR TABLET PO ONE ×2 (04:00→09:23)
[2023-10-15] MEDS: NS 1,000 ML IV SCH (04:30)
[2023-10-15] MEDS: INSULIN LISPRO (NovoLOG) PER UNIT SC SCH ×2 (06:00→20:47)
[2023-10-15] MEDS ORDERED: INSULIN LISPRO (NovoLOG) PER UNIT SC SCH ×2 (07:30→21:00)
[2023-10-15 07:54] LABS: BASO % 0.2 % (0.0-1.0); EOS % 0.1 % (0.0-3.0); HEMATOCRIT 38.1 % (36.0-47.0); HEMOGLOBIN 12.7 g/dl (12.0-15.5); LYMPH # 1.6 10^3/uL (1.5-5.0); LYMPH % 15.3 % (24.0-44.0); MEAN CORPUSCULAR HEMOGLOBIN 29.5 pg (27.0-33.0); MEAN CORPUSCULAR HGB CONC 33.3 g/dl (32.0-36.5); MEAN CORPUSCULAR VOLUME 88.6 fl (80.0-96.0); MONO # 0.7 10^3/uL (0.0-0.8); MONO % 6.9 % (2.0-8.0); NEUTROPHILS # 8.1 10^3/uL (1.5-8.5); NEUTROPHILS % 77.1 % (36.0-66.0); PLATELET COUNT, AUTOMATED 228 10^3/uL (150-450); WHITE BLOOD COUNT 10.5 10^3/uL (4.0-10.0)
[2023-10-15 08:04] LABS: ERYTHROCYTE SEDIMENTATION RATE 122 mm/hr (0-20)
[2023-10-15 08:16] LABS: BLOOD UREA NITROGEN 14 MG/DL (9-23); CALCIUM LEVEL 8.8 MG/DL (8.5-10.1); CARBON DIOXIDE LEVEL 22 MMOL/L (20-31); CHLORIDE LEVEL 102 MMOL/L (98-107); CREATININE FOR GFR 0.82 MG/DL (0.55-1.30); GLOMERULAR FILTRATION RATE > 60.0 (>58); GLUCOSE, FASTING 200 MG/DL (60-100); SODIUM LEVEL 137 MMOL/L (136-145)
[2023-10-15 08:28] LABS: PROCALCITONIN 0.12 ng/ml
[2023-10-15] MEDS: VANCOMYCIN HCL 1,000 MG, VIAL MATE ADAPTER 1 EACH in D5W 250 ML IV SCH (09:22)
[2023-10-15] MEDS: lisinopriL 40MG TAB PO SCH (09:24)
[2023-10-15] MEDS: ATORVASTATIN 20 MG TAB PO SCH (09:24)
[2023-10-15] MEDS: METOPROLOL TART 25 MG TABLET PO SCH (09:24)
[2023-10-15 09:47] LABS: CK-MB VALUE MASS < 1.0 NG/ML (<3.6)
[2023-10-15 09:49] LABS: CPK CREATINE PHOSPHOKINASE 104 U/L (34-145); MB/CK RELATIVE INDEX 0.96 (< OR =4)
[2023-10-15] MEDS: KCL 10MEQ/100ML SWI (KRUN) 10 MEQ in IV 1 EA IV SCH (10:53)
[2023-10-15] MEDS ORDERED: ONDANSETRON 4MG 2ML VIAL IV PRN (11:40)
[2023-10-15] MEDS ORDERED: oxyCODONE 5MG TAB PO PRN (11:40)
[2023-10-15] MEDS ORDERED: fentaNYL 100 MCG/2 ML INJECTION IV PRN (11:40)
[2023-10-15] MEDS ORDERED: MEPERIDINE 25 MG/ML 1ML VIAL IV PRN (11:40)
[2023-10-15] MEDS ORDERED: HYDROMORPHONE HCL 0.5 MG/ 0.5 ML SYRINGE IV PRN (11:40)
[2023-10-15] MEDS ORDERED: fentaNYL 100 MCG/2 ML INJECTION As Ordered ONE (16:45)
[2023-10-15] MEDS ORDERED: ONDANSETRON 4MG 2ML VIAL As Ordered ONE (16:45)
[2023-10-15] MEDS ORDERED: propofoL 200 MG/20 ML VIAL As Ordered ONE (16:45)
[2023-10-15] MEDS ORDERED: MIDAZOLAM INJ 2MG/2ML VIAL As Ordered ONE (16:45)
[2023-10-15] MEDS ORDERED: LIDOCAINE 2% 100MG/5ML SDV (FOR ANES.) As Ordered ONE (16:45)
[2023-10-15] MEDS ORDERED: SUCCINYLCHOLINE 100MG/5ML SYRINGE As Ordered ONE (17:24)
[2023-10-15] MEDS ORDERED: ROCURONIUM BROMIDE 50MG/5ML VIAL As Ordered ONE (17:25)
[2023-10-15] MEDS: LIDOCAINE 1% SDV 30ML VIAL As Ordered ONE (17:59)
[2023-10-15] MEDS: LEVEMIR (INSULIN DETEMIR) 1 UNITS/0.01ML SC SCH (20:46)
[2023-10-16] VITALS: BP 148/85; TEMP 97.2; O2SAT 98
[2023-10-16 04:00] VITALS: BP 148/86; TEMP 98.2; O2SAT 98
[2023-10-16] MEDS: ONDANSETRON 4MG 2ML VIAL IV PRN (04:09)
[2023-10-16 08:00] VITALS: BP 157/92; TEMP 97.9; O2SAT 99
[2023-10-16] MEDS ORDERED: PIPERACILLIN/TAZOBACTAM SOD 3.375 GM in D5W MINI-BAG PLUS 50 ML IV SCH (08:40)
[2023-10-16] MEDS: INSULIN LISPRO (NovoLOG) PER UNIT SC SCH (08:47)
[2023-10-16 08:48] LABS: BASO % 0.3 % (0.0-1.0); HEMATOCRIT 34.9 % (36.0-47.0); HEMOGLOBIN 11.5 g/dl (12.0-15.5); LYMPH # 1.9 10^3/uL (1.5-5.0); LYMPH % 16.9 % (24.0-44.0); MEAN CORPUSCULAR HEMOGLOBIN 29.3 pg (27.0-33.0); MONO # 0.7 10^3/uL (0.0-0.8); MONO % 6.1 % (2.0-8.0); NEUTROPHILS # 8.7 10^3/uL (1.5-8.5); NEUTROPHILS % 76.3 % (36.0-66.0); PLATELET COUNT, AUTOMATED 211 10^3/uL (150-450); RED BLOOD COUNT 3.92 10^6/uL (4.00-5.40); WHITE BLOOD COUNT 11.3 10^3/uL (4.0-10.0)
[2023-10-16] MEDS: DAPAGLIFLOZIN PROPANEDIOL 10MG TABLET (FARXIGA) PO SCH (08:48)
[2023-10-16] MEDS: ENOXAPARIN 40MG/0.4ML SYRINGE (J1650 PER 10MG) SC SCH (08:54)
[2023-10-16] MEDS ORDERED: ENOXAPARIN 40MG/0.4ML SYRINGE (J1650 PER 10MG) SC SCH (09:00)
[2023-10-16 09:12] LABS: VANCOMYCIN LEVEL TROUGH 9.6 UG/ML (10.0-20.0)
[2023-10-16 09:13] LABS: BLOOD UREA NITROGEN 15 MG/DL (9-23); CARBON DIOXIDE LEVEL 21 MMOL/L (20-31); CHLORIDE LEVEL 105 MMOL/L (98-107); CREATININE FOR GFR 0.73 MG/DL (0.55-1.30); GLOMERULAR FILTRATION RATE > 60.0 (>58); GLUCOSE, FASTING 166 MG/DL (60-100); POTASSIUM SERUM 3.6 MMOL/L (3.5-5.1); SODIUM LEVEL 137 MMOL/L (136-145)
[2023-10-16] MEDS: VANCOMYCIN HCL 750 MG, VIAL MATE ADAPTER 1 EACH in D5W 250 ML IV SCH (10:13)
[2023-10-16] MEDS: VANCOMYCIN HCL 500 MG in D5W MINI-BAG PLUS 100 ML IV SCH (11:22)
[2023-10-16 12:00] VITALS: BP 141/87; TEMP 97.5; O2SAT 97
[2023-10-16] MEDS: MEROPENEM INJ 1 GM in IV 1 EA IV SCH (12:36)
[2023-10-16 16:00] VITALS: BP 132/65; TEMP 97.9; O2SAT 99
[2023-10-17 00:17] VITALS: BP 150/91; TEMP 97.3; O2SAT 98
[2023-10-17 04:00] VITALS: BP 143/83; TEMP 98.1; O2SAT 100
[2023-10-17 07:08] LABS: BASO % 0.2 % (0.0-1.0); EOS % 0.2 % (0.0-3.0); HEMOGLOBIN 11.2 g/dl (12.0-15.5); LYMPH # 1.5 10^3/uL (1.5-5.0); LYMPH % 16.5 % (24.0-44.0); MEAN CORPUSCULAR HEMOGLOBIN 28.9 pg (27.0-33.0); MEAN CORPUSCULAR HGB CONC 32.9 g/dl (32.0-36.5); MEAN CORPUSCULAR VOLUME 87.9 fl (80.0-96.0); MONO # 0.6 10^3/uL (0.0-0.8); MONO % 6.7 % (2.0-8.0); NEUTROPHILS # 6.8 10^3/uL (1.5-8.5); NEUTROPHILS % 75.7 % (36.0-66.0); PLATELET COUNT, AUTOMATED 237 10^3/uL (150-450); RED BLOOD COUNT 3.87 10^6/uL (4.00-5.40)
[2023-10-17 07:33] LABS: BLOOD UREA NITROGEN 11 MG/DL (9-23); CALCIUM LEVEL 8.1 MG/DL (8.5-10.1); CARBON DIOXIDE LEVEL 27 MMOL/L (20-31); CHLORIDE LEVEL 105 MMOL/L (98-107); CREATININE FOR GFR 0.79 MG/DL (0.55-1.30); GLOMERULAR FILTRATION RATE > 60.0 (>58); GLUCOSE, FASTING 205 MG/DL (60-100); MAGNESIUM LEVEL 1.9 MG/DL (1.8-2.4); POTASSIUM SERUM 3.5 MMOL/L (3.5-5.1); SODIUM LEVEL 138 MMOL/L (136-145)
[2023-10-17 08:00] VITALS: BP 154/108; TEMP 97.7; O2SAT 100
[2023-10-17 12:00] VITALS: BP 155/89; TEMP 97.5; O2SAT 100
[2023-10-17 16:00] VITALS: BP 172/97; TEMP 97.7; O2SAT 99
[2023-10-17] MEDS: PERCOCET 5MG/325MG TAB PO PRN (17:00)
[2023-10-17 20:15] VITALS: BP 145/88; TEMP 97.3; O2SAT 99
[2023-10-18 04:19] VITALS: BP 142/82; TEMP 97.3; O2SAT 97
[2023-10-18 06:23] LABS: BASO % 0.2 % (0.0-1.0); EOS % 0.2 % (0.0-3.0); HEMATOCRIT 33.5 % (36.0-47.0); HEMOGLOBIN 11.1 g/dl (12.0-15.5); LYMPH # 1.7 10^3/uL (1.5-5.0); LYMPH % 18.7 % (24.0-44.0); MEAN CORPUSCULAR HGB CONC 33.1 g/dl (32.0-36.5); MEAN CORPUSCULAR VOLUME 87.5 fl (80.0-96.0); MONO # 0.6 10^3/uL (0.0-0.8); MONO % 6.4 % (2.0-8.0); NEUTROPHILS # 6.8 10^3/uL (1.5-8.5); NEUTROPHILS % 73.8 % (36.0-66.0); PLATELET COUNT, AUTOMATED 235 10^3/uL (150-450); RED BLOOD COUNT 3.83 10^6/uL (4.00-5.40); WHITE BLOOD COUNT 9.2 10^3/uL (4.0-10.0)
[2023-10-18 06:41] LABS: BLOOD UREA NITROGEN 9 MG/DL (9-23); CARBON DIOXIDE LEVEL 26 MMOL/L (20-31); CHLORIDE LEVEL 102 MMOL/L (98-107); CREATININE FOR GFR 0.77 MG/DL (0.55-1.30); GLOMERULAR FILTRATION RATE > 60.0 (>58); GLUCOSE, FASTING 323 MG/DL (60-100); MAGNESIUM LEVEL 1.8 MG/DL (1.8-2.4); POTASSIUM SERUM 3.2 MMOL/L (3.5-5.1); SODIUM LEVEL 137 MMOL/L (136-145)
[2023-10-18] MEDS: KCL 10MEQ/100ML SWI (KRUN) 10 MEQ in IV 1 EA IV SCH (08:06)
[2023-10-18] MEDS: POTASSIUM CHLORIDE 10MEQ SR TABLET PO STA (08:08)
[2023-10-18 12:00] VITALS: BP 149/96; TEMP 97.5; O2SAT 99
[2023-10-18] MEDS: MIRALAX *UNIT DOSE* 17GM PACKET PO STA (15:13)
[2023-10-18] MEDS: SENOKOT S TAB PO STA (15:14)
[2023-10-18 16:40] VITALS: BP 165/101; TEMP 97.3; O2SAT 98
[2023-10-18 20:00] VITALS: BP 157/87; TEMP 97.5; O2SAT 99
[2023-10-18] MEDS: CEFDINIR 300 MG CAP (OMNICEF) PO SCH (20:38)
[2023-10-18] MEDS: metroNIDAZOLE (FLAGYL) 500MG TABLET PO SCH (20:38)
[2023-10-18] MEDS: LEVEMIR (INSULIN DETEMIR) 1 UNITS/0.01ML SC SCH (22:42)
[2023-10-18 23:45] VITALS: BP 153/90; TEMP 97.7; O2SAT 99
[2023-10-19 03:51] VITALS: BP 147/87; TEMP 97.5; O2SAT 99
[2023-10-19] MEDS: PERCOCET 5MG/325MG TAB PO PRN (04:21)
[2023-10-19 06:41] LABS: BASO % 0.2 % (0.0-1.0); EOS % 0.5 % (0.0-3.0); HEMATOCRIT 34.1 % (36.0-47.0); HEMOGLOBIN 11.2 g/dl (12.0-15.5); LYMPH # 2.1 10^3/uL (1.5-5.0); LYMPH % 24.2 % (24.0-44.0); MEAN CORPUSCULAR HEMOGLOBIN 28.4 pg (27.0-33.0); MEAN CORPUSCULAR HGB CONC 32.8 g/dl (32.0-36.5); MEAN CORPUSCULAR VOLUME 86.5 fl (80.0-96.0); MONO # 0.4 10^3/uL (0.0-0.8); NEUTROPHILS # 5.9 10^3/uL (1.5-8.5); NEUTROPHILS % 69.4 % (36.0-66.0); PLATELET COUNT, AUTOMATED 270 10^3/uL (150-450); RED BLOOD COUNT 3.94 10^6/uL (4.00-5.40); WHITE BLOOD COUNT 8.6 10^3/uL (4.0-10.0)
[2023-10-19 06:56] LABS: BLOOD UREA NITROGEN 9 MG/DL (9-23); CALCIUM LEVEL 8.5 MG/DL (8.5-10.1); CARBON DIOXIDE LEVEL 28 MMOL/L (20-31); CHLORIDE LEVEL 101 MMOL/L (98-107); CREATININE FOR GFR 0.73 MG/DL (0.55-1.30); GLOMERULAR FILTRATION RATE > 60.0 (>58); GLUCOSE, FASTING 241 MG/DL (60-100); MAGNESIUM LEVEL 1.8 MG/DL (1.8-2.4); POTASSIUM SERUM 3.5 MMOL/L (3.5-5.1); SODIUM LEVEL 136 MMOL/L (136-145)
[2023-10-19 08:10] VITALS: BP 146/85; TEMP 97.3; O2SAT 94
[2023-10-19 12:00] VITALS: BP 135/90; TEMP 97.3; O2SAT 97
[2023-10-19] MEDS ORDERED: LIDOCAINE 1% MDV 20ML VIAL As Ordered ONE (13:40)
[2023-10-19 16:15] VITALS: BP 150/93; TEMP 97.9; O2SAT 99
[2023-10-19 19:53] VITALS: BP 148/88; TEMP 97.3; O2SAT 100
[2023-10-20 00:13] VITALS: BP 141/85; TEMP 97.7; O2SAT 98
[2023-10-20 04:10] VITALS: BP 131/43; TEMP 97.3; O2SAT 97
[2023-10-20 06:17] LABS: BASO % 0.2 % (0.0-1.0); EOS # 0.1 10^3/uL (0.0-0.5); EOS % 0.7 % (0.0-3.0); HEMATOCRIT 34.8 % (36.0-47.0); HEMOGLOBIN 11.3 g/dl (12.0-15.5); LYMPH # 1.9 10^3/uL (1.5-5.0); MEAN CORPUSCULAR HEMOGLOBIN 28.6 pg (27.0-33.0); MEAN CORPUSCULAR HGB CONC 32.5 g/dl (32.0-36.5); MEAN CORPUSCULAR VOLUME 88.1 fl (80.0-96.0); MONO # 0.5 10^3/uL (0.0-0.8); NEUTROPHILS # 6.5 10^3/uL (1.5-8.5); NEUTROPHILS % 72.3 % (36.0-66.0); PLATELET COUNT, AUTOMATED 296 10^3/uL (150-450); RED BLOOD COUNT 3.95 10^6/uL (4.00-5.40)
[2023-10-20 06:49] LABS: PROCALCITONIN 0.18 ng/ml
[2023-10-20 06:51] LABS: BLOOD UREA NITROGEN 14 MG/DL (9-23); CALCIUM LEVEL 8.6 MG/DL (8.5-10.1); CARBON DIOXIDE LEVEL 31 MMOL/L (20-31); CHLORIDE LEVEL 99 MMOL/L (98-107); CREATININE FOR GFR 0.81 MG/DL (0.55-1.30); GLOMERULAR FILTRATION RATE > 60.0 (>58); GLUCOSE, FASTING 247 MG/DL (60-100); MAGNESIUM LEVEL 1.8 MG/DL (1.8-2.4); POTASSIUM SERUM 3.5 MMOL/L (3.5-5.1); SODIUM LEVEL 138 MMOL/L (136-145)
[2023-10-20 08:00] VITALS: BP 139/84; TEMP 97.2; O2SAT 97
[2023-10-20 08:55] VITALS: BP 139/84
[2023-10-20] MEDS ORDERED: INSU100I48 INJ ×2 (10:29→11:04)
[2023-10-20] MEDS ORDERED: PERCOCET PO ×2 (10:48→11:04)
[2023-10-20] MEDS ORDERED: CEFD300CAP PO ×2 (10:48→11:04)
[2023-10-20] MEDS ORDERED: METR-265 PO ×2 (10:48→11:04)
[2023-10-20] MEDS ORDERED: RISATAB3 PO ×2 (10:51→11:04)
== END 2023-10-20 13:15 | disposition home or self-care (01) | DRG 720 ==
LOC: M ED 19:01 → M ED INP 10-15 00:48 → M MSPAV 10-15 11:14
PROVIDERS: ADMIT Internal Medicine; ATTEND Internal Medicine
PROC: 0H9T3ZZ Drainage of Right Breast, Percutaneous Approach (ICD-10-PCS; principal; 2023-10-19 14:00)
DX: A41.9 Sepsis, unspecified organism (principal); I24.89 Other forms of acute ischemic heart disease; Z68.41 Body mass index [BMI] 40.0-44.9, adult; E11.65 Type 2 diabetes mellitus with hyperglycemia; E66.01 Morbid (severe) obesity due to excess calories; I10 Essential (primary) hypertension; N61.1 Abscess of the breast and nipple; E87.6 Hypokalemia; E78.5 Hyperlipidemia, unspecified; Z86.73 Personal history of transient ischemic attack (TIA), and cerebral infarction without residual deficits; Z79.4 Long term (current) use of insulin; Z79.899 Other long term (current) drug therapy; Z88.0 Allergy status to penicillin; Z88.8 Allergy status to other drugs, medicaments and biological substances

== ENCOUNTER 2023-10-22 23:42 | Inpatient (IN) | payer OTHER ==
[~2023-10-22] VITALS: Ht 152.4 cm; Wt 106.2 kg
[~2023-10-22 23:42] MED LIST changes: +CEFD300CAP PO; +CLIN-250 PO; +DULA3PEN INJ; +INSU100I48 INJ; +METR-265 PO; +PERCOCET PO; +RISATAB3 PO; +VALA500T5 PO
[2023-10-23 04:18] LABS: BASO % 0.2 % (0.0-1.0); EOS # 0.1 10^3/uL (0.0-0.5); EOS % 0.5 % (0.0-3.0); HEMATOCRIT 36.8 % (36.0-47.0); LYMPH # 2.3 10^3/uL (1.5-5.0); LYMPH % 19.1 % (24.0-44.0); MEAN CORPUSCULAR HEMOGLOBIN 28.7 pg (27.0-33.0); MEAN CORPUSCULAR HGB CONC 32.6 g/dl (32.0-36.5); MONO # 0.7 10^3/uL (0.0-0.8); MONO % 5.9 % (2.0-8.0); NEUTROPHILS # 9.1 10^3/uL (1.5-8.5); NEUTROPHILS % 73.7 % (36.0-66.0); PLATELET COUNT, AUTOMATED 405 10^3/uL (150-450); RED BLOOD COUNT 4.18 10^6/uL (4.00-5.40); WHITE BLOOD COUNT 12.3 10^3/uL (4.0-10.0)
[2023-10-23] MEDS: NS 1,000 ML IV ONE (04:29)
[2023-10-23] MEDS: KETOROLAC 30 MG/ML 1ML VIAL IV ONE (04:30)
[2023-10-23 04:47] LABS: BLOOD UREA NITROGEN 14 MG/DL (9-23); CALCIUM LEVEL 9.3 MG/DL (8.5-10.1); CARBON DIOXIDE LEVEL 28 MMOL/L (20-31); CHLORIDE LEVEL 101 MMOL/L (98-107); GLOMERULAR FILTRATION RATE > 60.0 (>58); GLUCOSE, FASTING 272 MG/DL (60-100); POTASSIUM SERUM 3.9 MMOL/L (3.5-5.1); SODIUM LEVEL 137 MMOL/L (136-145)
[2023-10-23] MEDS: ACETAMINOPHEN *IV* 1,000 MG in IV 1 EA IV ONE (04:50)
[2023-10-23] MEDS: ceFAZolin SOD 2 GM in IV 1 EA IV ONE (06:25)
[2023-10-23] MEDS ORDERED: HOME MED LIST COMPLETE! XX SCH (06:40)
[2023-10-23] MEDS ORDERED: METR-265 PO (06:40)
[2023-10-23] MEDS ORDERED: CEFD1CAP9 PO (06:40)
[2023-10-23] MEDS ORDERED: OXYC1TAB23 PO (06:40)
[2023-10-23] MEDS ORDERED: GLUCOSE 4 GM CHEW PO PRN (08:30)
[2023-10-23] MEDS ORDERED: DEXTROSE 50% 50ML SYRINGE IV PRN (08:30)
[2023-10-23] MEDS ORDERED: GLUCAGON INJ 1MG VIAL SC PRN (08:30)
[2023-10-23] MEDS ORDERED: cefTRIAXone SOD 1 GM in D5W MINI-BAG PLUS 50 ML IV SCH (09:00)
[2023-10-23] MEDS: METOPROLOL TART 25 MG TABLET PO SCH (09:45)
[2023-10-23] MEDS: LEVEMIR (INSULIN DETEMIR) 1 UNITS/0.01ML SC SCH (09:47)
[2023-10-23] MEDS: ENOXAPARIN 40MG/0.4ML SYRINGE (J1650 PER 10MG) SC SCH (09:49)
[2023-10-23] MEDS: MEROPENEM INJ 1 GM in IV 1 EA IV SCH (09:49)
[2023-10-23] MEDS ORDERED: ONDANSETRON 4MG 2ML VIAL IV PRN (10:10)
[2023-10-23] MEDS: VANCOMYCIN HCL 750 MG, VIAL MATE ADAPTER 1 EACH in D5W 250 ML IV ONE ×2 (10:47→11:54)
[2023-10-23] MEDS: INSULIN LISPRO (NovoLOG) PER UNIT SC SCH ×2 (12:59→21:01)
[2023-10-23 14:00] VITALS: BP 163/109; TEMP 98.3; O2SAT 97
[2023-10-23] MEDS ORDERED: MIRALAX *UNIT DOSE* 17GM PACKET PO PRN (15:15)
[2023-10-23] MEDS: SENNA 8.6 MG TAB (SENOKOT) PO PRN (15:19)
[2023-10-23 15:40] VITALS: BP 142/90; TEMP 97.9; O2SAT 100
[2023-10-23] MEDS: PERCOCET 5MG/325MG TAB PO PRN (17:34)
[2023-10-23 20:11] VITALS: BP 155/98; TEMP 97.7; O2SAT 100
[2023-10-23] MEDS: VANCOMYCIN HCL 750 MG, VIAL MATE ADAPTER 1 EACH in D5W 250 ML IV SCH (21:00)
[2023-10-23] MEDS: VANCOMYCIN HCL 500 MG in D5W MINI-BAG PLUS 100 ML IV SCH (22:48)
[2023-10-24 04:13] VITALS: BP 124/76; TEMP 97; O2SAT 97
[2023-10-24] MEDS: INSULIN LISPRO (NovoLOG) PER UNIT SC SCH ×3 (08:44→16:27)
[2023-10-24 08:47] LABS: HEMATOCRIT 32.1 % (36.0-47.0); HEMOGLOBIN 10.7 g/dl (12.0-15.5); MEAN CORPUSCULAR HEMOGLOBIN 29.3 pg (27.0-33.0); MEAN CORPUSCULAR HGB CONC 33.3 g/dl (32.0-36.5); MEAN CORPUSCULAR VOLUME 87.9 fl (80.0-96.0); PLATELET COUNT, AUTOMATED 369 10^3/uL (150-450); RED BLOOD COUNT 3.65 10^6/uL (4.00-5.40); WHITE BLOOD COUNT 6.6 10^3/uL (4.0-10.0)
[2023-10-24 09:02] LABS: VANCOMYCIN LEVEL TROUGH 13.6 UG/ML (10.0-20.0)
[2023-10-24 09:05] LABS: BLOOD UREA NITROGEN 12 MG/DL (9-23); CALCIUM LEVEL 8.1 MG/DL (8.5-10.1); CARBON DIOXIDE LEVEL 32 MMOL/L (20-31); CHLORIDE LEVEL 102 MMOL/L (98-107); CREATININE FOR GFR 0.77 MG/DL (0.55-1.30); GLOMERULAR FILTRATION RATE > 60.0 (>58); GLUCOSE, FASTING 184 MG/DL (60-100); POTASSIUM SERUM 3.7 MMOL/L (3.5-5.1); SODIUM LEVEL 139 MMOL/L (136-145)
[2023-10-24] MEDS: MIRALAX *UNIT DOSE* 17GM PACKET PO SCH (10:00)
[2023-10-24] MEDS: FLUCONAZOLE 50MG TABLET PO STA (11:01)
[2023-10-24] MEDS: SENOKOT S TAB PO SCH (11:01)
[2023-10-24] MEDS ORDERED: LIDOCAINE 1% MDV 20ML VIAL As Ordered ONE (12:16)
[2023-10-24] MEDS: LACTOBACILLUS ACIDOPHILUS CAP (BACID) PO SCH (12:54)
[2023-10-24] MEDS: MEROPENEM INJ 1 GM in IV 1 EA IV SCH (12:54)
[2023-10-24 13:00] VITALS: BP 156/86; TEMP 97.5; O2SAT 98
[2023-10-24 19:56] VITALS: BP 157/95; TEMP 97.7; O2SAT 100
[2023-10-25 04:03] VITALS: BP 150/92; TEMP 97.7; O2SAT 96
[2023-10-25 09:12] LABS: BASO % 0.4 % (0.0-1.0); EOS # 0.1 10^3/uL (0.0-0.5); EOS % 1.4 % (0.0-3.0); HEMATOCRIT 35.4 % (36.0-47.0); HEMOGLOBIN 11.2 g/dl (12.0-15.5); LYMPH # 2.1 10^3/uL (1.5-5.0); LYMPH % 27.6 % (24.0-44.0); MEAN CORPUSCULAR HEMOGLOBIN 28.3 pg (27.0-33.0); MEAN CORPUSCULAR HGB CONC 31.6 g/dl (32.0-36.5); MEAN CORPUSCULAR VOLUME 89.4 fl (80.0-96.0); MONO # 0.5 10^3/uL (0.0-0.8); MONO % 6.6 % (2.0-8.0); NEUTROPHILS # 4.9 10^3/uL (1.5-8.5); NEUTROPHILS % 63.4 % (36.0-66.0); PLATELET COUNT, AUTOMATED 389 10^3/uL (150-450); RED BLOOD COUNT 3.96 10^6/uL (4.00-5.40); WHITE BLOOD COUNT 7.7 10^3/uL (4.0-10.0)
[2023-10-25 09:23] LABS: VANCOMYCIN LEVEL TROUGH 14.1 UG/ML (10.0-20.0)
[2023-10-25 09:24] LABS: BLOOD UREA NITROGEN 9 MG/DL (9-23); CALCIUM LEVEL 8.2 MG/DL (8.5-10.1); CARBON DIOXIDE LEVEL 29 MMOL/L (20-31); CHLORIDE LEVEL 103 MMOL/L (98-107); CREATININE FOR GFR 0.76 MG/DL (0.55-1.30); GLOMERULAR FILTRATION RATE > 60.0 (>58); GLUCOSE, FASTING 270 MG/DL (60-100); MAGNESIUM LEVEL 1.9 MG/DL (1.8-2.4); POTASSIUM SERUM 4.3 MMOL/L (3.5-5.1); SODIUM LEVEL 138 MMOL/L (136-145)
[2023-10-25 12:43] VITALS: BP 157/98; TEMP 97.5; O2SAT 98
[2023-10-25] MEDS: KETOROLAC 30 MG/ML 1ML VIAL IV PRN (18:01)
[2023-10-25 20:00] VITALS: BP 165/102; TEMP 98.1; O2SAT 100
[2023-10-26 04:00] VITALS: TEMP 97.5
[2023-10-26 06:41] LABS: BASO % 0.5 % (0.0-1.0); EOS # 0.1 10^3/uL (0.0-0.5); EOS % 1.8 % (0.0-3.0); HEMATOCRIT 32.9 % (36.0-47.0); HEMOGLOBIN 10.4 g/dl (12.0-15.5); LYMPH # 2.7 10^3/uL (1.5-5.0); LYMPH % 43.9 % (24.0-44.0); MEAN CORPUSCULAR HEMOGLOBIN 28.3 pg (27.0-33.0); MEAN CORPUSCULAR HGB CONC 31.6 g/dl (32.0-36.5); MEAN CORPUSCULAR VOLUME 89.4 fl (80.0-96.0); MONO # 0.3 10^3/uL (0.0-0.8); MONO % 5.6 % (2.0-8.0); NEUTROPHILS # 2.9 10^3/uL (1.5-8.5); NEUTROPHILS % 47.5 % (36.0-66.0); PLATELET COUNT, AUTOMATED 365 10^3/uL (150-450); RED BLOOD COUNT 3.68 10^6/uL (4.00-5.40); WHITE BLOOD COUNT 6.1 10^3/uL (4.0-10.0)
[2023-10-26 07:10] LABS: BLOOD UREA NITROGEN 9 MG/DL (9-23); CARBON DIOXIDE LEVEL 28 MMOL/L (20-31); CHLORIDE LEVEL 105 MMOL/L (98-107); CREATININE FOR GFR 0.68 MG/DL (0.55-1.30); GLOMERULAR FILTRATION RATE > 60.0 (>58); GLUCOSE, FASTING 194 MG/DL (60-100); MAGNESIUM LEVEL 1.8 MG/DL (1.8-2.4); POTASSIUM SERUM 4.1 MMOL/L (3.5-5.1); SODIUM LEVEL 137 MMOL/L (136-145)
[2023-10-26 08:32] VITALS: BP 174/112
[2023-10-26] MEDS: NYSTATIN 100,000 UNITS/GM TOPICAL PWD 15GM TOP SCH (08:52)
[2023-10-26] MEDS: KETOROLAC 30 MG/ML 1ML VIAL IV PRN (08:52)
[2023-10-26] MEDS: LevoFLOXacin 750 MG TABLET PO SCH (11:49)
[2023-10-26 11:55] VITALS: BP 132/74
[2023-10-26 12:00] VITALS: TEMP 97.5; O2SAT 100
[2023-10-26] MEDS ORDERED: IBUP-1022 PO (12:34)
[2023-10-26] MEDS ORDERED: RISATAB3 PO (12:34)
[2023-10-26] MEDS ORDERED: LEVO1TAB40 PO (12:36)
[2023-10-26] MEDS ORDERED: MICO2CRE7 PV (12:39)
[2023-10-26] MEDS ORDERED: metroNIDAZOLE (FLAGYL) 500MG TABLET PO SCH (14:00)
== END 2023-10-26 14:07 | disposition home or self-care (01) | DRG 385 ==
LOC: M ED 23:42 → UNDOADMOB 23:43 → M ED INP 23:43 → M MS5PR 10-23 13:05 → MERGE 10-24 08:23 → INTOOBSV 10-24 08:23 → OBSVTOIN 10-24 08:23 → UNDODISIN 10-26 14:07
PROVIDERS: ADMIT Internal Medicine; ATTEND Internal Medicine
PROC: 0H9T3ZZ Drainage of Right Breast, Percutaneous Approach (ICD-10-PCS; principal; 2023-10-24 12:00)
DX: N61.1 Abscess of the breast and nipple (principal); E11.65 Type 2 diabetes mellitus with hyperglycemia; I10 Essential (primary) hypertension; E66.01 Morbid (severe) obesity due to excess calories; L30.4 Erythema intertrigo; E78.5 Hyperlipidemia, unspecified; K59.00 Constipation, unspecified; B37.32 Chronic candidiasis of vulva and vagina; Z79.4 Long term (current) use of insulin; Z79.899 Other long term (current) drug therapy; Z88.0 Allergy status to penicillin; Z86.73 Personal history of transient ischemic attack (TIA), and cerebral infarction without residual deficits; Z68.42 Body mass index [BMI] 45.0-49.9, adult

== ENCOUNTER → 2023-11-08 | Outpatient (CLI) | payer OTHER ==
[~2023-11-08] MED LIST changes: +CEFD1CAP9 PO; +IBUP-1022 PO; +LEVO1TAB40 PO; +MICO2CRE7 PV; +NS 1,000 ML IV SCH; +OXYC1TAB23 PO
== END ==
LOC: M IRPRO 07:06
PROVIDERS: ATTEND Surgery
DX: N61.1 Abscess of the breast and nipple (principal)

== ENCOUNTER → 2023-12-09 | Outpatient (CLI) | payer OTHER ==
[~2023-12-09] MED LIST changes: -NS 1,000 ML IV SCH
[2023-12-09 07:25] VITALS: BP 153/87; TEMP 96.9; O2SAT 100
== END ==
LOC: M IRPRO 07:15
PROVIDERS: ATTEND Surgery
DX: N61.1 Abscess of the breast and nipple (principal); N61.0 Mastitis without abscess

== ENCOUNTER 2024-04-17 13:59 | Emergency (ER) | payer OTHER ==
[~2024-04-17] VITALS: Ht 152.4 cm; Wt 105.6 kg
[2024-04-17 14:51] LABS: BASO % 0.6 % (0.0-1.0); EOS # 0.1 10^3/uL (0.0-0.5); EOS % 0.7 % (0.0-3.0); HEMOGLOBIN 14.7 g/dl (12.0-15.5); LYMPH % 41.4 % (24.0-44.0); MEAN CORPUSCULAR HEMOGLOBIN 29.2 pg (27.0-33.0); MEAN CORPUSCULAR HGB CONC 33.4 g/dl (32.0-36.5); MEAN CORPUSCULAR VOLUME 87.3 fl (80.0-96.0); MONO # 0.3 10^3/uL (0.0-0.8); MONO % 4.5 % (2.0-8.0); NEUTROPHILS # 3.8 10^3/uL (1.5-8.5); NEUTROPHILS % 52.5 % (36.0-66.0); PLATELET COUNT, AUTOMATED 226 10^3/uL (150-450); RED BLOOD COUNT 5.04 10^6/uL (4.00-5.40); WHITE BLOOD COUNT 7.3 10^3/uL (4.0-10.0)
[2024-04-17 15:02] LABS: ERYTHROCYTE SEDIMENTATION RATE 91 mm/hr (0-20)
[2024-04-17 15:23] LABS: BLOOD UREA NITROGEN 17 MG/DL (9-23); C REACTIVE PROTEIN QUANTITATIV 0.66 MG/DL (<1.0); CALCIUM LEVEL 9.3 MG/DL (8.5-10.1); CARBON DIOXIDE LEVEL 26 MMOL/L (20-31); CHLORIDE LEVEL 100 MMOL/L (98-107); CREATININE FOR GFR 0.82 MG/DL (0.55-1.30); GLOMERULAR FILTRATION RATE > 60.0 (>58); GLUCOSE, FASTING 330 MG/DL (60-100); POTASSIUM SERUM 3.3 MMOL/L (3.5-5.1); SODIUM LEVEL 138 MMOL/L (136-145)
[2024-04-17] MEDS ORDERED: CLEO300C2 PO (19:59)
[2024-04-17 20:30] VITALS: BP 124/75; TEMP 97.4; O2SAT 97
== END 2024-04-17 20:35 | disposition home or self-care (01) ==
LOC: M ED 13:59
DX: N61.1 Abscess of the breast and nipple (principal); L72.3 Sebaceous cyst; E11.9 Type 2 diabetes mellitus without complications; I10 Essential (primary) hypertension; Z88.0 Allergy status to penicillin; Z88.8 Allergy status to other drugs, medicaments and biological substances; Z79.1 Long term (current) use of non-steroidal anti-inflammatories (NSAID); Z79.2 Long term (current) use of antibiotics; Z79.4 Long term (current) use of insulin; Z79.899 Other long term (current) drug therapy

== ENCOUNTER 2024-04-24 10:57 | Emergency (ER) | payer OTHER ==
[~2024-04-24] VITALS: Ht 152.4 cm; Wt 106.1 kg
[~2024-04-24 10:57] MED LIST changes: +CLEO300C2 PO
[2024-04-24] MEDS: KETOROLAC 30 MG/ML 1ML VIAL IV ONE (14:57)
[2024-04-24] MEDS: METHOCARBAMOL 1,000 MG/10 ML VIAL IV ONE (14:57)
[2024-04-24] MEDS: ACETAMINOPHEN 500 MG TAB PO ONE (14:59)
[2024-04-24] MEDS ORDERED: METH-1164 PO (15:29)
[2024-04-24] MEDS: LIDOCAINE 5% (LIDODERM) PATCH TD ONE (15:48)
[2024-04-24] MEDS ORDERED: NAPR-837 PO (17:00)
[2024-04-24] MEDS ORDERED: PRED20TA PO (17:00)
[2024-04-24 17:14] VITALS: BP 129/76; TEMP 98.9; O2SAT 97
== END 2024-04-24 17:23 | disposition home or self-care (01) ==
LOC: EDBD 10:57 → M ED 10:57
DX: M54.32 Sciatica, left side (principal); E11.9 Type 2 diabetes mellitus without complications; I10 Essential (primary) hypertension; F12.10 Cannabis abuse, uncomplicated; Z88.0 Allergy status to penicillin; Z88.8 Allergy status to other drugs, medicaments and biological substances; Z79.2 Long term (current) use of antibiotics; Z79.1 Long term (current) use of non-steroidal anti-inflammatories (NSAID); Z79.4 Long term (current) use of insulin; Z79.52 Long term (current) use of systemic steroids; Z79.899 Other long term (current) drug therapy
CPT/HCPCS: 96374; 99284; J1100; J1885; J2800

== ENCOUNTER → 2024-04-30 | Outpatient (CLI) | payer OTHER ==
[~2024-04-30] MED LIST changes: +METH-1164 PO; +NAPR-837 PO; +PRED20TA PO
== END ==
LOC: M RAD 11:39
PROVIDERS: ATTEND Nurse Practitioner Family
DX: M54.32 Sciatica, left side (principal)

== ENCOUNTER 2024-05-02 10:41 | Emergency (ER) | payer OTHER ==
[~2024-05-02] VITALS: Ht 152.4 cm; Wt 181.3 kg
[2024-05-02] MEDS: NS (Normal Saline) 0.9% 1,000 ML IV ONE ×3 (12:10→14:43)
[2024-05-02 12:17] LABS: BASO % 0.1 % (0.0-1.0); EOS % 0.1 % (0.0-3.0); HEMATOCRIT 41.2 % (36.0-47.0); HEMOGLOBIN 14.4 g/dl (12.0-15.5); LYMPH # 1.8 10^3/uL (1.5-5.0); LYMPH % 12.5 % (24.0-44.0); MEAN CORPUSCULAR VOLUME 85.8 fl (80.0-96.0); MONO # 0.8 10^3/uL (0.0-0.8); MONO % 5.4 % (2.0-8.0); NEUTROPHILS # 11.4 10^3/uL (1.5-8.5); NEUTROPHILS % 81.4 % (36.0-66.0); PLATELET COUNT, AUTOMATED 262 10^3/uL (150-450)
[2024-05-02 12:17] LABS: VENOUS BASE EXCESS 0.7 (-2.0-2.0); VENOUS HCO3 22.7 MMOL/L (23.0-27.0); VENOUS O2 SATURATION 98.7 % (60.0-80.0); VENOUS PARTIAL PRESSURE CO2 29.7 mmHg (38.0-50.0); VENOUS PARTIAL PRESSURE O2 111.2 mmHg (30.0-50.0); VENOUS PH 7.501 UNITS (7.330-7.430); VENOUS STANDARD HCO3 25.1 MMOL/L; VENOUS TOTAL CO2 23.6 MMOL/L (24.0-28.0)
[2024-05-02 12:27] LABS: ERYTHROCYTE SEDIMENTATION RATE 114 mm/hr (0-20)
[2024-05-02 13:00] LABS: C REACTIVE PROTEIN QUANTITATIV 21.32 MG/DL (<1.0)
[2024-05-02] MEDS: ACETAMINOPHEN 325 MG TAB PO ONE (13:30)
[2024-05-02 13:44] LABS: ALBUMIN 3.2 G/DL (3.2-5.2); ALKALINE PHOSPHATASE 120 U/L (35-104); ALT/SGPT 17 U/L (7.0-40); AST/SGOT 23 U/L (<34); BILIRUBIN,TOTAL 0.8 MG/DL (0.3-1.2); BLOOD UREA NITROGEN 22 MG/DL (9-23); CARBON DIOXIDE LEVEL 23 MMOL/L (20-31); CHLORIDE LEVEL 94 MMOL/L (98-107); CREATININE FOR GFR 0.87 MG/DL (0.55-1.30); GLOMERULAR FILTRATION RATE > 60.0 (>58); GLUCOSE, FASTING 504 MG/DL (60-100); POTASSIUM SERUM 4.3 MMOL/L (3.5-5.1); SODIUM LEVEL 132 MMOL/L (136-145); TOTAL PROTEIN 7.2 G/DL (5.7-8.2)
[2024-05-02 14:04] LABS: HEMOGLOBIN A1c > 14.0 % (4.0-6.0)
[2024-05-02] MEDS: INSULIN LISPRO (NovoLOG) PER UNIT SC STA (14:11)
[2024-05-02] MEDS ORDERED: LIDOCAINE 1% MDV 20ML VIAL As Ordered ONE (15:19)
[2024-05-02] MEDS ORDERED: CLIN150C17 PO (15:28)
[2024-05-02] MEDS: CLINDAMYCIN 600 MG in IV 1 EA IV ONE (16:42)
[2024-05-02 17:23] VITALS: BP 111/71; TEMP 97.6; O2SAT 100
[2024-05-04 17:37] LABS: ACETONE/KETONE 2.21 MMOL/L (0.02-0.27)
== END 2024-05-02 17:25 | disposition home or self-care (01) ==
LOC: M ED 10:41
DX: N61.21 Granulomatous mastitis, right breast (principal); E11.65 Type 2 diabetes mellitus with hyperglycemia; L03.313 Cellulitis of chest wall; I10 Essential (primary) hypertension; Z88.0 Allergy status to penicillin; Z88.8 Allergy status to other drugs, medicaments and biological substances; Z79.4 Long term (current) use of insulin; Z79.1 Long term (current) use of non-steroidal anti-inflammatories (NSAID); Z79.899 Other long term (current) drug therapy
CPT/HCPCS: 19020; 76642; 76942; 80047; 80053; 82010; 82803; 83036; 83605; 84702; 85025; 85652; 86140; 87040; 87070; 87075; 87076; 87102; 87205; 87486; 87581; 87633; 87798; 88173; 88305; 96361; 96372; 96374; 99284; J0737; J1815

== ENCOUNTER → 2024-05-16 | Outpatient (CLI) | payer OTHER ==
[~2024-05-16] MED LIST changes: +CLIN150C17 PO
== END ==
LOC: M RAD 15:21
PROVIDERS: ATTEND Nurse Practitioner Family
DX: M17.12 Unilateral primary osteoarthritis, left knee (principal)

== ENCOUNTER 2024-06-13 09:59 | Outpatient (RCR) | payer OTHER | END 2024-06-18 | LOC: M PT 09:59 | PROVIDERS: ATTEND Nurse Practitioner Family | DX: M54.32 Sciatica, left side (principal) ==

== ENCOUNTER 2024-07-03 07:00 | Outpatient (RCR) | payer OTHER | END 2024-07-18 | LOC: M PT 07:00 | PROVIDERS: ATTEND Nurse Practitioner Family | DX: M54.32 Sciatica, left side (principal) ==

== ENCOUNTER → 2024-10-09 | Outpatient (REF) | payer OTHER ==
[~2024-10-09] MED LIST changes: +LIDO1ADH93 TOP; -LIDO5DIS41 TOP; +LISI40TA10; +LISI40TA10 PO; -LISI40TA4; -LISI40TA4 PO
[2024-10-09 17:55] LABS: ESTIMATED AVERAGE GLUCOSE 349.0 MG/DL (60-110)
[2024-10-09 18:13] LABS: ALT/SGPT 25.0 U/L (7.0-40); AST/SGOT 30.0 U/L (<34); CALCIUM LEVEL 9.0 MG/DL (8.5-10.1); CARBON DIOXIDE LEVEL 28.0 MMOL/L (20-31); CHLORIDE LEVEL 101.0 MMOL/L (98-107); CHOLESTEROL LEVEL 181.0 MG/DL (<200); CHOLESTEROL RISK RATIO 3.71 (<5); CREATININE FOR GFR 0.86 MG/DL (0.55-1.30); GLOMERULAR FILTRATION RATE 84.9 (>58); LDL CHOLESTEROL 108.5 MG/DL (<100); NON-HDL-C 132.3 MG/DL; POTASSIUM SERUM 4.4 MMOL/L (3.5-5.1); SODIUM LEVEL 142.0 MMOL/L (136-145); TRIGLYCERIDES LEVEL 119.0 MG/DL (<150)
== END ==
LOC: M LAB REF 16:31
PROVIDERS: ATTEND Student in an Organized Health Care Education/Training Program
DX: E66.01 Morbid (severe) obesity due to excess calories (principal)

== ENCOUNTER 2025-01-23 17:19 | Emergency (ER) | payer MEDICAID, OTHER ==
[~2025-01-23] VITALS: Ht 152.4 cm; Wt 108.2 kg
[~2025-01-23 17:19] MED LIST changes: -IBUP-1022 PO; +IBUP600T42 PO
[2025-01-23] MEDS: NS (Normal Saline) 0.9% 1,000 ML IV ONE (18:10)
[2025-01-23] MEDS: ONDANSETRON 4MG/2ML VIAL IV ONE (18:10)
[2025-01-23] MEDS: PANTOPRAZOLE 40MG VIAL IV ONE (18:10)
[2025-01-23 18:22] LABS: BASO # 0.0 10^3/uL (0.0-0.2); BASO % 0.4 % (0.0-1.0); EOS # 0.0 10^3/uL (0.0-0.5); EOS % 0.6 % (0.0-3.0); LYMPH # 2.9 10^3/uL (1.5-5.0); LYMPH % 40.7 % (24.0-44.0); MONO # 0.4 10^3/uL (0.0-0.8); MONO % 4.9 % (2.0-8.0); NEUTROPHILS # 3.8 10^3/uL (1.5-8.5); NEUTROPHILS % 53.3 % (36.0-66.0); PLATELET COUNT, AUTOMATED 248 10^3/uL (150-450)
[2025-01-23 18:56] LABS: ALT/SGPT 38 U/L (7.0-40); AST/SGOT 47 U/L (<34); CALCIUM LEVEL 9.2 MG/DL (8.5-10.1); CARBON DIOXIDE LEVEL 28 MMOL/L (20-31); CHLORIDE LEVEL 99 MMOL/L (98-107); CREATININE FOR GFR 0.77 MG/DL (0.55-1.30); GLOMERULAR FILTRATION RATE > 90.0 (>58); POTASSIUM SERUM 4.9 MMOL/L (3.5-5.1); SODIUM LEVEL 138 MMOL/L (136-145)
[2025-01-23] MEDS ORDERED: ONDA-83 PO (19:19)
[2025-01-23 19:31] VITALS: BP 138/77; TEMP 99.2; O2SAT 98
== END 2025-01-23 19:35 | disposition home or self-care (01) ==
LOC: M ED 17:19
DX: R11.10 Vomiting, unspecified (principal); R19.7 Diarrhea, unspecified; E11.9 Type 2 diabetes mellitus without complications; I10 Essential (primary) hypertension; Z88.0 Allergy status to penicillin; Z88.8 Allergy status to other drugs, medicaments and biological substances; Z79.4 Long term (current) use of insulin; Z79.1 Long term (current) use of non-steroidal anti-inflammatories (NSAID); Z79.899 Other long term (current) drug therapy
CPT/HCPCS: 74018; 80048; 80076; 83690; 85025; 96361; 96374; 99284; J2405; J2470

== ENCOUNTER → 2025-02-18 | Outpatient (CLI) | payer OTHER ==
[~2025-02-18] MED LIST changes: +ONDA-83 PO
== END ==
LOC: M WHC 08:10
PROVIDERS: ATTEND Obstetrics & Gynecology
DX: Z12.31 Encounter for screening mammogram for malignant neoplasm of breast (principal); Z53.9 Procedure and treatment not carried out, unspecified reason